=== PATIENT | male | born 1940 | race Caucasian/White ===

== ENCOUNTER 2017-03-02 08:56 | Inpatient (IN) | payer MEDICARE, MEDICAID ==
[~2017-03-02] VITALS: Ht 172.7 cm; Wt 74.5 kg
[2017-03-02] MEDS ORDERED: SOD CHLORIDE 0.9% 1,000 ML IV STA ×2 (09:04→11:10)
[2017-03-02] MEDS ORDERED: LORAZEPAM 2 MG INJ ONE (09:07)
[2017-03-02] MEDS ORDERED: LORAZEPAM 2 MG INJ IV ONE (09:30)
--- NOTE | 2017-03-02 09:46 | RADRPT ---
PROCEDURE: CT ABDOMEN AND PELVIS WITHOUT CONTRAST. CLINICAL INDICATION: Abdominal pain TECHNIQUE: CT scan of the abdomen and pelvis without contrast was performed on a multidetector hig h-resolution CT scanner. The patient was scanned without intravenous contrast. Coronal and sagittal reformatted images were obtained from the axial source images. Images were reviewed on a high-resol pic5 PACS workstation. The total exam CTDI equals 9.2 mGy and the total exam DLP equals 608.1 mGy-c m. One or more of the following dose reduction techniques were used: Automated exposure control. Adjustment of the mA and/or kV according to patient size. Use of iterative reconstruction technique. DICOM images are available COMPARISON: None FINDINGS: CT abdomen: Bilateral lower lobe atelectasis and chronic lung changes are noted. There are ground-glass opacitie s and small right-sided pleural effusion. Heart size is enlarged. There is no significant pericardia l effusion. Coronary atherosclerotic calcifications are noted. Hepatic morphology is within limits. No gross contour deforming masses. Gallstones are identified. T here is thickening of the gallbladder wall with pericholecystic fluid. The spleen and pancreas are within normal limits. Both adrenal glands are identified in the there appears to be a left adrenal gland nodule, measuring 1.8 cm, which is indeterminate. Both kidneys are normal anatomic position. Bilateral renal cysts are noted. The largest on the left measures 3.1 cm. The largest on the right, measures 9.4 mm. No gross renal/ureteric calculi. No evid ence of obstruction or hydronephrosis. The visualized GI tract demonstrates a small hiatal hernia. Normal caliber loops of small and large bowel noted. No evidence of bowel obstruction. Stool filled loops of large bowel suggestive of const ipation. The appendix is not visualized, however no inflammatory changes within right lower quadrant . There is atherosclerotic calcification of the aorta. Mild aneurysmal dilatation of the infrarenal ao rta measuring up to 3.5 cm noted. Several shoddy retroperitoneal lymph nodes are identified. CT pelvis: The bladder is within normal limits. The prostate gland is calcified and normal size. There are fat- containing bilateral inguinal hernias. There is sigmoid diverticulosis without diverticulitis. No fr ee fluid or free air. No gross focal fluid collections. The visualized osseous structures demonstrate multilevel degenerative disease of the spine. IMPRESSION: 1. Gallstones with possible thickening of the gallbladder wall and pericholecystic fluid. Recommend correlation with ultrasound. Cannot exclude cholecystitis. 2. No evidence of bowel obstruction. Stool filled loops of large bowel suggestive of constipation. S igmoid colon diverticulosis. 3. Diffuse atherosclerosis of the aorta and aneurysmal dilatation of the infrarenal aorta measuring up to 3.5 cm. 4. Bilateral renal cysts. No evidence of obstruction or hydronephrosis. 5. No free fluid or free air. No gross focal fluid collections. 6. Indeterminate 1.8 cm left adrenal gland nodule. 7. Fat-containing bilateral inguinal hernias. RPTAT: EE Physician Elroy Date Time Electronically viewed and signed by Physician Elroy on 03/02/2017 09:46 ENEDINA/
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
--- NOTE | 2017-03-02 09:54 | RADRPT ---
PROCEDURE: CT cervical spine without contrast CLINICAL INDICATION: Altered mental status TECHNIQUE: CT scan of the cervical spine was performed. No IV contrast was administered. Coronal and sagittal reformatted images were obtained from the axial source images. Images were reviewed on a high-resolution PACS workstation. The calculated radiation dose measures 542.89 mGy centimeters. The CTDI measures 22.28 mGy. One or more of the following dose reduction techniques were used: - Automated exposure control. - Adjustment of the mA and/or kV according to patient size . - Use of iterative reconstruction technique. - DICOM images area available Images were reviewed on a high-resolution PACS workstation COMPARISON: None. FINDINGS: There is reversal of the normal cervical lordosis. There are no acute vertebral body fractures. Mul tilevel degenerative disc disease seen noting severe narrowing at C5-C6 and C6-C7. There is mild ant erolisthesis at C3-C4 and to a lesser extent at C4-C5. Trace retrolisthesis seen at C5-C6. The paraspinal soft tissues are within normal limits. C2-3: The osseous central canal is patent. Mild right neural foraminal stenosis. Right facet joint f usion. Severe left facet arthrosis. C3-4: Patent central canal. Moderate to severe bilateral neural foraminal stenosis. Severe bilateral facet arthrosis. C4-5: Patent central canal. Severe left neural foraminal stenosis. The right neural foramen. Severe left facet arthrosis. Mild right facet arthrosis. C5-6: Disk/osteophyte complex formation contributing to at least moderate central canal stenosis. Mo derate to severe bilateral neural foraminal stenosis. Mild bilateral facet arthrosis. C6-7: Patent osseous central canal. Moderate right neural foraminal stenosis. Mild left neural efrain inal stenosis. Mild bilateral facet arthrosis. C7-T1: Trace anterolisthesis. No osseous spinal stenosis. IMPRESSION: 1. No acute fracture or traumatic subluxation. 2. Reversal of the normal cervical lordosis related to paraspinal muscle spasm or positioning. 3. Multilevel degenerative disc disease noting severe disc space narrowing at C5-C6 and C6 C7. 4. Multilevel neural foraminal stenosis. RPTAT: .Vitor Pinto MD, MD Date Time Electronically viewed and signed by .Vitor Pinto MD, MD on 03/02/2017 09:53 .d/
--- NOTE | 2017-03-02 10:12 | RADRPT ---
PROCEDURE: XR Chest. CLINICAL INDICATION: Shortness of breath TECHNIQUE: Single portable view of the chest was obtained COMPARISON: No priors for comparison FINDINGS: The trachea is midline. Cardiomegaly and pulmonary vascularity are prominent. The lungs are clear. T he costophrenic angles are sharp. IMPRESSION: 1. Cardiomegaly and pulmonary vascular congestion. RPTAT: EE Physician Elroy Date Time Electronically viewed and signed by Physician Elroy on 03/02/2017 10:12 JL/
[2017-03-02 10:15] LABS: ABNORMAL IP MESSAGE 1; BASOPHIL # 0.1 10^3/ul (0.0-0.1); BASOPHILS % 0.9 % (0.0-2.0); EOSINOPHILS # 0.3 10^3/ul (0.0-0.5); EOSINOPHILS % 4.5 % (0.0-7.0); HEMATOCRIT 28.5 % (42.0-52.0); HEMOGLOBIN 9.2 g/dl (14.0-18.0); LYMPHOCYTES # 0.7 10^3/ul (0.8-2.9); LYMPHOCYTES % 12.1 % (15.0-51.0); MEAN CORPUSCULAR HEMOGLOBIN 29.9 pg (29.0-33.0); MEAN CORPUSCULAR HGB CONC 32.3 g/dl (32.0-37.0); MEAN CORPUSCULAR VOLUME 92.5 fl (82.0-101.0); MEAN PLATELET VOLUME 13.9 fl (7.4-10.4); MONOCYTE # 0.4 10^3/ul (0.3-0.9); MONOCYTES % 6.6 % (0.0-11.0); NEUTROPHIL # 4.2 10^3/ul (1.6-7.5); NEUTROPHILS % 75.2 % (39.0-77.0); PLATELET COUNT 168 10^3/UL (140-415); POSITIVE DIFF @See below; RED BLOOD COUNT 3.08 10^6/ul (4.70-6.10); RED CELL DISTRIBUTION WIDTH 15.6 % (11.5-14.5); WHITE BLOOD COUNT 5.6 10^3/ul (4.8-10.8)
[2017-03-02 10:33] LABS: ALANINE AMINOTRANSFERASE 56 IU/L (13-69); ALBUMIN 4.1 g/dl (3.3-4.9); ALBUMIN/GLOBULIN RATIO 1.32; ALKALINE PHOSPHATASE 105 IU/L (42-121); ANION GAP 20 (8-16); ASPARTATE AMINO TRANSFERASE 55 IU/L (15-46); BILIRUBIN,INDIRECT 0.9 mg/dl (0-1.1); BILIRUBIN,TOTAL 0.9 mg/dl (0.2-1.3); BLOOD UREA NITROGEN 45 mg/dl (7-20); CALCIUM 9.1 mg/dl (8.4-10.2); CARBON DIOXIDE 22 mmol/L (21-31); CHLORIDE 108 mmol/L (97-110); CREATININE 3.36 mg/dl (0.61-1.24); GLUCOSE 105 mg/dl (70-220); POTASSIUM 5.9 mmol/L (3.5-5.1); SODIUM 144 mmol/L (135-144); TOTAL PROTEIN 7.2 g/dl (6.1-8.1)
[2017-03-02 10:36] LABS: ACETAMINOPHEN < 10.0 ug/ml (10.0-30.0); ETHANOL < 10.0 mg/dl; SALICYLATE < 1.0 mg/dl (5.0-30.0)
[2017-03-02 10:45] LABS: TROPONIN-I < 0.012 ng/ml (0.00-0.12)
--- NOTE | 2017-03-02 11:09 | RADRPT ---
PROCEDURE: US right upper quadrant abdomen. CLINICAL INDICATION: Abdominal pain TECHNIQUE: Multiple real-time images were acquired of the patient's right upper quadrant abdomen utilizing a high resolution transducer. COMPARISON: None FINDINGS: The liver demonstrates normal echogenicity and normal size without focal lesions. Patent portal vein . Nondistended gallbladder with stones. Mild gallbladder wall thickening likely related to non diste nsion. No pericholecystic fluid. Negative sonographic Morales's sign. No intrahepatic or extrahepati c biliary dilatation. The common bile duct measures 4.5 mm in maximal dimension. Pancreas is obsc ured by bowel gas. Right kidney is obscured by bowel gas. Normal caliber aorta and IVC. No peritonea l free fluid. IMPRESSION: Nondistended gallbladder with gallstones. Gallbladder wall thickening likely related to non distensi on. If clinical concern for a cholecystitis recommend a HIDA scan. RPTAT:AAJJ Physician Cynthia Date Time Electronically viewed and signed by Physician Cynthia on 03/02/2017 11:08 /
[2017-03-02] MEDS ORDERED: NA BICARBONATE 8.4% 50 ML SYG IV STA (11:10)
[2017-03-02] MEDS ORDERED: WARF1TAB47 PO (11:17)
[2017-03-02] MEDS ORDERED: ONDANSETRON 4 MG INJ IV PRN ×2 (11:30→15:00)
[2017-03-02] MEDS ORDERED: ACETAMINOPHEN 325 MG TAB PO PRN ×2 (11:30→15:00)
[2017-03-02] MEDS ORDERED: morphine 4 MG/ML VIAL IV STA (11:35)
[2017-03-02 12:06] LABS: INR 2.5; PROTIME 27.3 Sec (12.2-14.2); PT RATIO 2.1
[2017-03-02 12:08] LABS: PARTIAL THROMBOPLASTIN TIME 39.2 Sec (25.0-35.0)
[2017-03-02 12:09] LABS: ADD UMIC YES; UR ASCORBIC ACID NEGATIVE (NEGATIVE); UR BILIRUBIN (Dip) NEGATIVE (NEGATIVE); UR BLOOD (Dip) NEGATIVE (NEGATIVE); UR CLARITY CLEAR (CLEAR); UR COLOR YELLOW (YELLOW); UR GLUCOSE (Dip) NEGATIVE (NEGATIVE); UR KETONES (Dip) NEGATIVE (NEGATIVE); UR LEUKOCYTE ESTERASE (Dip) NEGATIVE Leu/ul (NEGATIVE); UR NITRITE (Dip) NEGATIVE (NEGATIVE); UR RBC 1 /HPF (0-5); UR SPECIFIC GRAVITY (Dip) 1.008 (1.003-1.030); UR TOTAL PROTEIN (Dip) 1+ mg/dl (NEGATIVE); UR UROBILINOGEN (Dip) NEGATIVE (NEGATIVE)
[2017-03-02 12:42] LABS: BARBITURATES Negative (NEGATIVE); BENZODIAZEPINES Positive (NEGATIVE); CANNABINOIDS Negative (NEGATIVE); COCAINE Negative (NEGATIVE); OPIATES Negative (NEGATIVE)
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
[2017-03-02] MEDS ORDERED: NACL 0.9% 3 ML SYG IV SCH (15:00)
[2017-03-02 15:12] VITALS: PULSE 102
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
[2017-03-02 16:00] VITALS: BP 125/85; RESP 17
[2017-03-02 16:22] VITALS: PULSE 106
--- NOTE | 2017-03-02 17:31 | RADRPT ---
PROCEDURE: US bilateral lower extremity veins. CLINICAL INDICATION: Bilateral leg pain and swelling. TECHNIQUE: Multiple longitudinal and transverse images of the bilateral lower extremity veins were obtained with benitez scale and color Doppler imaging. The common femoral vein, femoral vein, and popl iteal vein were evaluated. 2D grayscale measurements with compression sonography, color Doppler, and pulsed Doppler with augmentation. COMPARISON: No prior studies are available for comparison. FINDINGS: The bilateral common femoral, femoral and popliteal veins are normally compressible throughout. Col or flow demonstrates normal filling of the vessels. Normal waveforms are visualized and there is no rmal response to augmentation. IMPRESSION: 1. No evidence of deep vein thrombosis involving either lower extremity. RPTAT: QQ .Howard Quigley MD, MD Date Time Electronically viewed and signed by .Howard Quigley MD, on 03/02/2017 17:31 .R/
[2017-03-02 18:36] VITALS: Ht 172.7 cm; Wt 74.5 kg
[2017-03-02 19:27] LABS: CREATINE KINASE 232 IU/L (23-200); IRON 41 ug/dl (35-150)
[2017-03-02 19:28] LABS: ALBUMIN 3.6 g/dl (3.3-4.9); ALBUMIN/GLOBULIN RATIO 1.28; BILIRUBIN,INDIRECT 1.2 mg/dl (0-1.1); BILIRUBIN,TOTAL 1.2 mg/dl (0.2-1.3); CALCIUM 8.5 mg/dl (8.4-10.2); CREATININE 3.08 mg/dl (0.61-1.24); POTASSIUM 5.5 mmol/L (3.5-5.1); TOTAL PROTEIN 6.4 g/dl (6.1-8.1)
[2017-03-02 19:38] LABS: TOTAL IRON BINDING CAPACITY 252 ug/dl (241-421)
[2017-03-02 19:48] LABS: CK-MB 4.14 ng/ml (0.0-2.4); TROPONIN-I < 0.012 ng/ml (0.00-0.12)
[2017-03-02 19:59] LABS: THYROID STIMULATING HORMONE 0.121 MIU/L (0.465-4.680)
[2017-03-02 20:00] VITALS: BP 122/72; RESP 20
[2017-03-02 20:04] VITALS: PULSE 110
[2017-03-02] MEDS ORDERED: NA POLYST SULFON 15 GM/60 ML BTL PO ONE (21:00)
[2017-03-02] MEDS: LORAZEPAM 0.5 MG TAB PO PRN (21:29)
[2017-03-02] MEDS: METOPROLOL 25 MG TAB PO SCH (21:30)
[2017-03-02] MEDS: HYDROCODONE/APAP (5/325) TAB PO PRN (23:53)
[2017-03-02 23:58] VITALS: BP 147/96; RESP 20
[2017-03-03] VITALS (13 sets, daily range): BP systolic 113–179; BP diastolic 67–113; PULSE 90–150; RESP 18–20
[2017-03-03 06:52] LABS: ABNORMAL IP MESSAGE 1; BASOPHIL # 0.1 10^3/ul (0.0-0.1); EOSINOPHILS # 0.1 10^3/ul (0.0-0.5); EOSINOPHILS % 1.4 % (0.0-7.0); HEMATOCRIT 25.9 % (42.0-52.0); HEMOGLOBIN 8.3 g/dl (14.0-18.0); LYMPHOCYTES # 1.1 10^3/ul (0.8-2.9); LYMPHOCYTES % 13.3 % (15.0-51.0); MEAN CORPUSCULAR VOLUME 93.5 fl (82.0-101.0); MEAN PLATELET VOLUME 13.3 fl (7.4-10.4); MONOCYTE # 0.6 10^3/ul (0.3-0.9); MONOCYTES % 7.1 % (0.0-11.0); NEUTROPHIL # 6.4 10^3/ul (1.6-7.5); NEUTROPHILS % 76.8 % (39.0-77.0); PLATELET COUNT 163 10^3/UL (140-415); POSITIVE DIFF @See below; RED BLOOD COUNT 2.77 10^6/ul (4.70-6.10); RED CELL DISTRIBUTION WIDTH 15.5 % (11.5-14.5); WHITE BLOOD COUNT 8.4 10^3/ul (4.8-10.8)
[2017-03-03 07:14] LABS: INR 1.75; PROTIME 20.6 Sec (12.2-14.2); PT RATIO 1.6
[2017-03-03 07:44] LABS: ALBUMIN 3.6 g/dl (3.3-4.9); ALBUMIN/GLOBULIN RATIO 1.12; BILIRUBIN,INDIRECT 1.6 mg/dl (0-1.1); BILIRUBIN,TOTAL 1.6 mg/dl (0.2-1.3); CALCIUM 8.8 mg/dl (8.4-10.2); CREATININE 3.14 mg/dl (0.61-1.24); TOTAL PROTEIN 6.8 g/dl (6.1-8.1)
[2017-03-03 08:03] LABS: TROPONIN-I 0.016 ng/ml (0.00-0.12)
[2017-03-03 08:06] LABS: CK-MB 3.6 ng/ml (0.0-2.4)
[2017-03-03 08:16] LABS: CHOL/HDL RATIO 3.7 RATIO; MAGNESIUM 1.7 mg/dl (1.7-2.5); PHOSPHORUS 4.1 mg/dl (2.5-4.9)
[2017-03-03] MEDS: METOPROLOL 25 MG TAB PO SCH (08:47)
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
[2017-03-03] MEDS ORDERED: AMLODIPINE 5 MG TAB GTB SCH (12:30)
--- NOTE | 2017-03-03 13:23 | RADRPT ---
PROCEDURE: XR Chest. CLINICAL INDICATION: Shortness of breath. TECHNIQUE: Single frontal view. COMPARISON: 03/02/2017. FINDINGS: Mild pulmonary edema is unchanged. The lungs are otherwise clear. The heart is mildly enlarged. There is calcification in the aorta consistent with atherosclerosis. T here are sternal wires. There is no pleural effusion. There is no pneumothorax. IMPRESSION: 1. No change from the 03/02/2017 chest radiograph. RPTAT: QQ .Howard Quigley MD, MD Date Time Electronically viewed and signed by .Howard Quigley MD, MD on 03/03/2017 13:22 .R/
[2017-03-03] MEDS: hydrALAzine 20 MG INJ IV PRN (14:40)
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
[2017-03-03] MEDS ORDERED: LABETALOL HCL 20MG INJ IV PRN (16:00)
--- NOTE | 2017-03-03 16:39 | RADRPT ---
PROCEDURE: US kidney CLINICAL INDICATION: Acute kidney insufficiency TECHNIQUE: Multiple real-time images were acquired COMPARISON: Abdomen/pelvis CT 03/02/2017 FINDINGS: The right kidney measures 8.4 cm in length. The left kidney measures 9.8 cm in length. Bilateral kidney parenchyma increased echogenicity. Multiple bilateral kidney small (less than or eq ual to 2.8 cm in greatest dimension) hypoechoic findings, many of which are too small to characteriz e, and some of which may be complex. Of note, kidney stones may not be visualized by sonography. No abnormal perirenal fluid collections seen. No hydronephrosis seen. Limited images of the partially distended bladder reveal no significant abnormalities. 4.3 x 3.5 cm infrarenal abdominal aortic aneurysm corresponds to the aneurysm seen on the CT scan fr om yesterday, though it measures larger on this sonogram IMPRESSION: 1. Bilateral kidney parenchyma increased echogenicity, possibly secondary to medical renal disease. Multiple bilateral kidney hypoechoic findings, many of which are too small to characterize; most of these likely are cystic, but some may be complex cystic. 2. Infrarenal abdominal aortic aneurysm that measures 4.3 x 3.5 cm on this sonogram. Compare to older corresponding imaging studies; if these are unavailable, follow-up imaging is recom mended. RPTAT: TT Physician Nato Date Time Electronically viewed and signed by Physician Nato on 03/03/2017 16:39 JS/
[2017-03-03] MEDS ORDERED: WARFARIN 1 MG TAB PO SCH (17:00)
[2017-03-03] MEDS ORDERED: DILTIAZEM 25 MG INJ IV PRN (18:00)
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
--- NOTE | 2017-03-03 18:21 | RADRPT ---
Echocardiogram Report Patient Name: WENDY CLAYTON Gender: Male Date: 1940 Study Date: 03-Mar-2017 Tobacco Weigher: Carlton Skelton [facility] Location: [address] Ref. Physician: MEL CORREIA Quality: Adequate Procedures: Transthoracic echocardiogram with complete 2D, M-Mode, and doppler examination. Indications: Possible CHF, dyspnea. 2D/M Mode Doppler Measurement Value Normal Ranges Measurement Value Normal Ranges LVIDd 2D 5.3 3.5 - 5.6 cm AV Peak Juan F 1.1 m/sec LVIDs 2D 4.0 2.1 - 4.1 cm AV Peak PG 4.8 mmHg LVPWd 2D 1.1 0.6 - 1.1 cm LVOT Peak Juan F 0.9 m/sec IVSd 2D 1.1 0.6 - 1.1 cm LVOT Peak PG 3.2 mmHg EDV 2D 135.2 cm3 TR Peak Juan F 3.8 m/sec ESV 2D 62.9 cm3 TR Peak PG 57.0 mmHg RVSP 67.0 mmHg Findings Left Ventricle: Normal left ventricular systolic function. Normal left ventricular cavity size. Left ventricular wall thickness upper limits of normal. Ejection fraction is visually estimated at 55 %. Abnormal Diastolic Function. Right Ventricle: Normal right ventricular size. Mild right ventricular systolic dysfunction. Left Atrium: There is moderate enlargement of left atrium. Right Atrium: The right atrium is normal in size. Mitral Valve: Mild mitral leaflet calcification. Mild mitral annular calcification. Mild to moderate mitral valve regurgitation. Aortic Valve: Aortic valve not well visualized. Aortic sclerosis without stenosis. Aortic cusps appear mildly calcified. Trace to mild aortic valve regurgitation. Tricuspid Valve: Normal appearance of the tricuspid valve. Estimated peak PA systolic pressure 62 mmHg. There is mild to moderate tricuspid regurgitation. Pulmonic Valve: Pulmonic valve not well visualized. There is trace pulmonic regurgitation. Pericardium: Normal pericardium with no significant pericardial effusion. Aorta: Normal aortic root. IVC: Dilated inferior vena cava with poor inspiratory collapse consistent with elevated right atrial pressures. Conclusions 1.Normal left ventricular systolic function. Normal left ventricular cavity size. Left ventricular wall thickness upper limits of normal. Ejection fraction is visually estimated at 55 %. Abnormal Diastolic Function. 2.There is moderate enlargement of left atrium. 3.Mild mitral leaflet calcification. Mild mitral annular calcification. Mild to moderate mitral valve regurgitation. 4.Aortic valve not well visualized. Aortic sclerosis without stenosis. Aortic cusps appear mildly calcified. Trace to mild aortic valve regurgitation. 5.Normal appearance of the tricuspid valve. Estimated peak PA systolic pressure 62 mmHg. There is mild to moderate tricuspid regurgitation. 6.Dilated inferior vena cava with poor inspiratory collapse consistent with elevated right atrial pressures. Electronically Signed By: Memo Johnston 03-Mar-2017 18:20:06 -0800 Patient Name: WENDY CLAYTON Study Date: 03-Mar-2017 [id number]
[2017-03-04] VITALS (13 sets, daily range): BP systolic 103–177; BP diastolic 72–110; PULSE 91–125; RESP 17–20
[2017-03-04] MEDS: HYDROCODONE/APAP (5/325) TAB PO PRN ×2 (03:41→23:22)
[2017-03-04 08:36] LABS: ABNORMAL IP MESSAGE 1; BASOPHILS % 0.6 % (0.0-2.0); EOSINOPHILS # 0.1 10^3/ul (0.0-0.5); HEMATOCRIT 24.3 % (42.0-52.0); HEMOGLOBIN 7.7 g/dl (14.0-18.0); LYMPHOCYTES % 14.8 % (15.0-51.0); MEAN CORPUSCULAR HEMOGLOBIN 29.5 pg (29.0-33.0); MEAN CORPUSCULAR HGB CONC 31.7 g/dl (32.0-37.0); MEAN CORPUSCULAR VOLUME 93.1 fl (82.0-101.0); MEAN PLATELET VOLUME 13.4 fl (7.4-10.4); MONOCYTE # 0.7 10^3/ul (0.3-0.9); MONOCYTES % 10.5 % (0.0-11.0); NEUTROPHIL # 5.1 10^3/ul (1.6-7.5); NEUTROPHILS % 72.7 % (39.0-77.0); PLATELET COUNT 139 10^3/UL (140-415); POSITIVE DIFF @See below; RED BLOOD COUNT 2.61 10^6/ul (4.70-6.10); RED CELL DISTRIBUTION WIDTH 15.6 % (11.5-14.5)
[2017-03-04 09:03] LABS: INR 1.61; PROTIME 19.3 Sec (12.2-14.2); PT RATIO 1.5
[2017-03-04 09:09] LABS: ALBUMIN 3.4 g/dl (3.3-4.9); ALBUMIN/GLOBULIN RATIO 1.06; BILIRUBIN,INDIRECT 1.8 mg/dl (0-1.1); BILIRUBIN,TOTAL 1.8 mg/dl (0.2-1.3); CALCIUM 8.8 mg/dl (8.4-10.2); CHOL/HDL RATIO 3.6 RATIO; CREATININE 2.77 mg/dl (0.61-1.24); MAGNESIUM 1.7 mg/dl (1.7-2.5); POTASSIUM 4.3 mmol/L (3.5-5.1); TOTAL PROTEIN 6.6 g/dl (6.1-8.1)
[2017-03-04 09:32] LABS: THYROID STIMULATING HORMONE 0.19 MIU/L (0.465-4.680)
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
[2017-03-04] MEDS: hydrALAzine 20 MG INJ IV PRN (18:48)
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
[2017-03-04] MEDS: LORAZEPAM 0.5 MG TAB PO PRN (22:05)
[2017-03-05] VITALS (13 sets, daily range): BP systolic 130–177; BP diastolic 78–109; PULSE 84–131; RESP 17–20
[2017-03-05 08:41] LABS: ABNORMAL IP MESSAGE 1; BASOPHILS % 0.5 % (0.0-2.0); EOSINOPHILS # 0.1 10^3/ul (0.0-0.5); EOSINOPHILS % 1.3 % (0.0-7.0); HEMATOCRIT 24.2 % (42.0-52.0); HEMOGLOBIN 7.8 g/dl (14.0-18.0); LYMPHOCYTES # 0.8 10^3/ul (0.8-2.9); LYMPHOCYTES % 9.9 % (15.0-51.0); MEAN CORPUSCULAR HEMOGLOBIN 29.8 pg (29.0-33.0); MEAN CORPUSCULAR HGB CONC 32.2 g/dl (32.0-37.0); MEAN CORPUSCULAR VOLUME 92.4 fl (82.0-101.0); MEAN PLATELET VOLUME 13.5 fl (7.4-10.4); MONOCYTE # 0.6 10^3/ul (0.3-0.9); MONOCYTES % 8.2 % (0.0-11.0); NEUTROPHIL # 6.2 10^3/ul (1.6-7.5); NEUTROPHILS % 79.7 % (39.0-77.0); NUCLEATED RED BLOOD CELLS% 0.3 /100WBC (0.0-0.0); PLATELET COUNT 144 10^3/UL (140-415); POSITIVE DIFF @See below; RED BLOOD COUNT 2.62 10^6/ul (4.70-6.10); RED CELL DISTRIBUTION WIDTH 15.5 % (11.5-14.5); WHITE BLOOD COUNT 7.8 10^3/ul (4.8-10.8)
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
[2017-03-05] MEDS ORDERED: FUROSEMIDE 40 MG INJ IV ONE (09:00)
[2017-03-05 09:13] LABS: ALBUMIN 3.3 g/dl (3.3-4.9); ALBUMIN/GLOBULIN RATIO 1.06; BILIRUBIN,INDIRECT 1.5 mg/dl (0-1.1); BILIRUBIN,TOTAL 1.5 mg/dl (0.2-1.3); CALCIUM 8.9 mg/dl (8.4-10.2); CREATININE 2.57 mg/dl (0.61-1.24); POTASSIUM 4.5 mmol/L (3.5-5.1); TOTAL PROTEIN 6.4 g/dl (6.1-8.1)
[2017-03-05] MEDS: DILTIAZEM (CD) 120 MG CAP PO SCH ×2 (10:46→20:45)
[2017-03-05] MEDS: hydrALAzine 20 MG INJ IV PRN (12:18)
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
[2017-03-05] MEDS: FERROUS SULFATE (EC) 325 MG TAB PO SCH (15:33)
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
[2017-03-05] MEDS: LORAZEPAM 0.5 MG TAB PO PRN (19:39)
[2017-03-05] MEDS: HYDROCODONE/APAP (5/325) TAB PO PRN (22:08)
[2017-03-06] VITALS (8 sets, daily range): BP systolic 132–168; BP diastolic 75–98; PULSE 68–100; RESP 19–20
[2017-03-06 08:21] LABS: ABNORMAL IP MESSAGE 1; BASOPHILS % 0.4 % (0.0-2.0); EOSINOPHILS # 0.1 10^3/ul (0.0-0.5); EOSINOPHILS % 1.4 % (0.0-7.0); HEMATOCRIT 24.7 % (42.0-52.0); LYMPHOCYTES # 0.9 10^3/ul (0.8-2.9); LYMPHOCYTES % 11.8 % (15.0-51.0); MEAN CORPUSCULAR HEMOGLOBIN 29.4 pg (29.0-33.0); MEAN CORPUSCULAR HGB CONC 32.4 g/dl (32.0-37.0); MEAN CORPUSCULAR VOLUME 90.8 fl (82.0-101.0); MEAN PLATELET VOLUME 13.7 fl (7.4-10.4); MONOCYTE # 0.6 10^3/ul (0.3-0.9); MONOCYTES % 8.2 % (0.0-11.0); NEUTROPHIL # 5.8 10^3/ul (1.6-7.5); NEUTROPHILS % 77.8 % (39.0-77.0); PLATELET COUNT 158 10^3/UL (140-415); POSITIVE DIFF @See below; RED BLOOD COUNT 2.72 10^6/ul (4.70-6.10); RED CELL DISTRIBUTION WIDTH 15.4 % (11.5-14.5); WHITE BLOOD COUNT 7.4 10^3/ul (4.8-10.8)
[2017-03-06 08:49] LABS: CALCIUM 8.6 mg/dl (8.4-10.2); CREATININE 2.75 mg/dl (0.61-1.24); POTASSIUM 4.3 mmol/L (3.5-5.1)
[2017-03-06] MEDS: FERROUS SULFATE (EC) 325 MG TAB PO SCH (09:04)
[2017-03-06] MEDS: DILTIAZEM (CD) 120 MG CAP PO SCH (09:04)
[2017-03-06] MEDS ORDERED: FER325 PO (11:38)
[2017-03-06] MEDS ORDERED: DILT120C77 PO (11:38)
[2017-03-06] MEDS ORDERED: CLON0.1T14 PO (11:38)
[2017-03-06] MEDS ORDERED: CARV25TA79 PO (11:38)
--- NOTE | 2017-03-06 12:01 | PDOCDIS ---
Discharge Instructions DIAGNOSIS Discharge Diagnosis 1. AK I. 2. Hyperkalemia likely secondary to #1. 3. Right-sided chest pain. 4. Acute encephalopathy. 5. Atrial fibrillation. 6. Essential hypertension. 7. CAD. Patient is status post CABG in 2003. 8. Normocytic normochromic anemia. 9. Anxiety. CONDITION Patient Condition: Stable HOME CARE INSTRUCTIONS: Special Diet: Cardiac FOLLOW UP/APPOINTMENTS Follow-up Plan 1. Follow up with Dr. Memo Johnston within one week 2. Follow up with your motion picture narrator in one week MEL CORREIA Mar 06, 2017 12:01
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
== END 2017-03-06 14:20 | disposition home or self-care (01) | DRG 682 ==
LOC: E/R 08:56 → TEL 11:17
PROVIDERS: ADMIT Internal Medicine; ATTEND Internal Medicine
DX: N17.9 Acute kidney failure, unspecified (principal); G93.40 Encephalopathy, unspecified; E87.0 Hyperosmolality and hypernatremia; E87.5 Hyperkalemia; D63.1 Anemia in chronic kidney disease; N28.1 Cyst of kidney, acquired; I25.10 Atherosclerotic heart disease of native coronary artery without angina pectoris; I12.9 Hypertensive chronic kidney disease with stage 1 through stage 4 chronic kidney disease, or unspecified chronic kidney disease; N18.9 Chronic kidney disease, unspecified; R07.89 Other chest pain; F41.9 Anxiety disorder, unspecified; M25.511 Pain in right shoulder; I48.2 Chronic atrial fibrillation; Z79.01 Long term (current) use of anticoagulants; Z95.1 Presence of aortocoronary bypass graft; V43.53XA Car driver injured in collision with pick-up truck in traffic accident, initial encounter; Y92.410 Unspecified street and highway as the place of occurrence of the external cause
CPT/HCPCS: 36415; 70450; 71010; 72125; 74176; 76705; 76775; 80048; 80053; 80061; 80162; 80306; 80307; 81001; 82550; 82553; 82728; 83036; 83540; 83690; 83735; 83880; 84100; 84132; 84300; 84439; 84443; 84484; 85025; 85610; 85730; 93005; 93306; 93970; 96361; 96374; 96375; 97116; 97162; 97530; J0360; J1940; J2060; J2270; J2405; J7030